=== PATIENT | male | born 1985 ===

== ENCOUNTER 2017-08-14 14:01 | Emergency (ER) | payer MEDICAID ==
[2017-08-14 14:02] VITALS: BMI 26.1
--- NOTE | 2017-08-14 14:37 | C.PDOC ---
History Of Present Illness 32 year old male comes in complaining of swelling to the lower left eyelid for 2 days. Patient reports redness and pain today. Denies discharge, visual changes , eye injury. No fever or chills. Patient does not wear contacts or glasses. Time Seen by Provider: 08/14/17 14:22 History Per: Patient History/Exam Limitations: no limitations Onset/Duration Of Symptoms: Days (2) Current Symptoms Are (Timing): Still Present Injury To Eye?: No Severity: Mild Quality: "Pain" Wears Contact Lens?: No Associated Symptoms: Pain, Swelling. denies: Decreased Vision, Discharge From Eye Recent travel outside of the [place]: No Additional History Per: Patient Past Medical History Reviewed: Historical Data, Nursing Documentation, Vital Signs Vital Signs: Last Vital Signs Temp 97.8 F 08/14/17 14:46 Pulse 80 08/14/17 14:46 Resp 16 08/14/17 14:46 BP 123/78 08/14/17 14:46 Pulse Ox 98 08/14/17 15:51 - Medical History PMH: Fractures (right pinkie rightnckle left wrist) Denies: Chronic Kidney Disease Family History: States: Unknown Family Hx - Social History Hx Alcohol Use: No Hx Substance Use: No - Immunization History Hx Tetanus Toxoid Vaccination: No Hx Influenza Vaccination: No Hx Pneumococcal Vaccination: No Review Of Systems Constitutional: Negative for: Fever, Chills Eyes: Positive for: Pain (Pain and swellling to the left lower eyelid), Redness. Negative for: Vision Change, Other (eye injury or discharge) Physical Exam - Physical Exam Appears: Well, Non-toxic, No Acute Distress Skin: Warm, Dry Head: Atraumatic, Normacephalic Eye(s): bilateral: PERRL, EOMI, right: Normal Inspection, left: Other (Mild erythema, swelling, tenderness, and pointing to the left lateral lower eyelid. No discharge. No crusting on the eyelid.) Ear(s): Bilateral: Normal Nose: Normal Oral Mucosa: Moist Neck: Normal ROM Chest: Symmetrical Extremity: Normal ROM Neurological/Psych: Oriented x3, Normal Speech ED Course And Treatment O2 Sat by Pulse Oximetry: 98 (RA) Pulse Ox Interpretation: Normal Medical Decision Making Medical Decision Making: Impression: * Swelling, redness, and pain to the lower left eyelid for 2 days Progress, Reassess and Dispo: Patient is in no acute distress at this time and explain this is stye. Recommend warm compress to area and will prescribe eye ointment. Patient was instructed to follow up with PMD for further evaluation and to return if symptoms worsens. Disposition Counseled Patient/Family Regarding: Need For Followup - Disposition Referrals: Kapil Mahoney MD [Staff Provider] - Disposition: HOME/ ROUTINE Disposition Time: 14:35 Condition: STABLE Additional Instructions: apply warm compress to affected eye apply half inch of eye ointment to eye twice daily follow up with optho if symptoms persist Prescriptions: Erythromycin 0.5% [Ilytocin] 3.5 gm OS BID #1 tube Instructions: Stye (ED) Forms: [facility] (Setswana) - POA Present On Arrival: None - Clinical Impression Clinical Impression: Hordeolum of left eye - Scribe Statement The provider has reviewed the documentation as recorded by the Scribe Martha soria All medical record entries made by the Scribe were at my direction and personally dictated by me. I have reviewed the chart and agree that the record accurately reflects my personal performance of the history, physical exam, medical decision making, and the department course for this patient. I have also personally directed, reviewed, and agree with the discharge instructions and disposition.
[2017-08-14 14:48] VITALS: BP 123/78; PULSE 80; RESP 16; TEMP 97.8; O2SAT 98
== END 2017-08-14 15:03 | disposition home or self-care (01) ==
LOC: C.ER 14:01
DX: H00.015 Hordeolum externum left lower eyelid (principal)

== ENCOUNTER 2017-08-17 10:23 | Emergency (ER) | payer MEDICAID ==
[2017-08-17 10:23] VITALS: BMI 26.1
[2017-08-17 10:33] VITALS: BP 126/74; RESP 18; TEMP 97.2
[2017-08-17 12:08] VITALS: PULSE 58
[2017-08-17 12:11] VITALS: O2SAT 99
--- NOTE | 2017-08-17 12:11 | C.PDOC ---
History Of Present Illness Cindy Ward is a 32 year old male, with no past medical history, who presents to the emergency department complaining of of left lower eyelid swelling onset for 5 days. Patient was seen in ED 3 days ago and was prescribed erythromycin which he is using twice a day and stays using warm compresses. Patient denies any fever, chills, nausea, vomit, or abdominal pain. No further medical complaints. PMD: None provided. Time Seen by Provider: 08/17/17 10:42 Chief Complaint (Nursing): Eye Problem History Per: Patient History/Exam Limitations: no limitations Onset/Duration Of Symptoms: Days (x5) Current Symptoms Are (Timing): Still Present Injury To Eye?: No Severity: Mild Associated Symptoms: Swelling Past Medical History Reviewed: Historical Data, Nursing Documentation, Vital Signs Vital Signs: Last Vital Signs Temp 97.2 F L 08/17/17 10:30 Pulse 58 L 08/17/17 11:00 Resp 18 08/17/17 11:00 BP 126/74 08/17/17 10:30 Pulse Ox 99 08/17/17 21:59 - Medical History PMH: No Chronic Diseases, Fractures (right pinkie rightnckle left wrist) Denies: Chronic Kidney Disease Family History: States: Unknown Family Hx - Social History Hx Tobacco Use: No Hx Alcohol Use: Yes Hx Substance Use: No - Immunization History Hx Tetanus Toxoid Vaccination: No Hx Influenza Vaccination: Yes Hx Pneumococcal Vaccination: No Review Of Systems Except As Marked, All Systems Reviewed And Found Negative. Constitutional: Negative for: Fever, Chills Eyes: Positive for: Eyelid Inflammation (left lower eyelid), Redness Gastrointestinal: Negative for: Nausea, Vomiting, Abdominal Pain Physical Exam - Physical Exam Appears: Well, Non-toxic, No Acute Distress Skin: Warm, Dry Head: Atraumatic, Normacephalic Eye(s): left: Eyelid Inflammation (mild erythema and cyst-like swelling at the margin of left lower eyelid) Ear(s): Bilateral: Normal Neurological/Psych: Oriented x3, Normal Speech, Normal Cognition ED Course And Treatment O2 Sat by Pulse Oximetry: 99 (RA) Pulse Ox Interpretation: Normal Medical Decision Making Medical Decision Making: Scribe Attestation The documentation for this encounter was entered by Pedro Gutierres acting as a scribe for Yoli SALCEDO All medical record entries made by the Scribe were at my direction and personally dictated by me. I have reviewed the chart and agree that the record accurately reflects my personal performance of the history, physical exam, medical decision making, and the department course for this patient. I have also personally directed, reviewed, and agree with the discharge instructions and disposition. Disposition Counseled Patient/Family Regarding: Studies Performed, Diagnosis - Disposition Referrals: Kapil Mahoney MD [Staff Provider] - Disposition: HOME/ ROUTINE Disposition Time: 12:08 Condition: STABLE Additional Instructions: FOLLOW UP WITH LINING MACHINE OPERATOR ON SATURDAY. CONTINUE WARM COMPRESSES AND ERYTHROMYCIN OPHTHALMIC OINTMENT. IF SYMPTOMS GET WORSE OR ANY NEW CONCERNING SYMPTOMS DEVELOP RETURN TO ED. Instructions: Lexi (ED) Forms: [facility] (Portuguese) - Clinical Impression Clinical Impression: Cathy
== END 2017-08-17 12:20 | disposition home or self-care (01) ==
LOC: C.ER 10:23
DX: H00.015 Hordeolum externum left lower eyelid (principal)